=== PATIENT | male | born 1980 | race Caucasian/White ===

== ENCOUNTER → 2020-03-07 | Outpatient (CLI) | payer OTHER ==
[~2020-03-07] VITALS: Ht 198.1 cm; Wt 124.7 kg
[2020-03-07 14:22] VITALS: BP 158/99
--- NOTE | 2020-03-07 14:32 | NUR ---
Pain Clinic Assessment: 1. History of Osteoarthritis: right hip History of Rheumatoid Arthritis: Not Applicable 2. Height: 6 ft. 6 in. 198.1 cm. Weight: 275.0 lb. oz. 124.740 kg. Patient's BMI: 31.8 3. Vital Signs: BP: 158/99 Pulse: 102 Resp: 16 Temp: 02 Sat: 95 ECG Mon: 4. Pain Intensity: 8 5. Fall Risk: Dizziness: N Needs help standing or walking: N Fallen in the last 3 months: N Fall risk comments: 6. Patient on Blood Thinner: None 7. History of Hypertension: N 8. Opioid Therapy greater than 6 weeks: N Opiate Contract Signed: 9. Risk Assessment Tool Provided: low-0 10. Functional Assessment Tool: 50/70 11. Recreational Drug Use: Never Drug Type: Tobacco Use: Former Smoker Tobacco Type: Amount or Packs/day: How Many Years: Alcohol Use: Yes Frequency: Weekly Quant: 6
--- NOTE | 2020-03-13 08:12 | HPC ---
[facility] [address] [place] [address] PAIN MANAGEMENT CONSULTATION Name: FRANCA RIGGINS Room #: REG JUAN MANUEL Parsons.#: [id number] Admission: 03/07/20 Attend Phys: Taqueria Serna DO Discharge: Date of : 80 Report #: [id number] CC: Richie Mujica MD FAM physician/PCP Taqueria Serna DATE OF SERVICE: 03/07/2020 REFERRING PHYSICIAN: Richie Mujica MD with [facility]. CHIEF COMPLAINT: Low back pain, right lower extremity pain with paresthesias. HISTORY OF PRESENT ILLNESS: As you know, the patient is a very pleasant 39-year-old male who reports acute onset of low back pain, right lower extremity pain that began 10/2019. He believes he "threw his back out" at the gym. He has been trialing conservative treatment over the past 6-8 weeks. He has tried [id number] medications, rest, relaxation without improvement in symptoms. He ultimately went for lumbar MRI after discussing his case further with his primary care physician. MRI showed changes at the L4-L5 level consistent with his symptoms and he was subsequently referred to Neurosurgery to discuss treatment options. There was noted a large central right paracentral disk protrusion measuring 1.5 x 0.8 x 1.3 cm that severely narrowed the lateral recess. The patient was seen by Neurosurgery, Dr. Richie Mujica on 03/06/2020, advised to trial conservative treatment options and referred to our clinic for evaluation to discuss the possibility of undergoing lumbar epidural injection and other treatment options. The patient indicates today pain is continuous, steady throughout the day. There is periodic, intermittent and momentary exacerbations of symptoms. He states his pain is burning, shooting, cramping, aching, throbbing, sharp, numbness and tingling. He places his current pain score at 8/10, daily average at 8/10, worst pain has been is 10/10. The patient states his pain is exacerbated with standing and sitting for any length of time and improves with repositioning and lying down. He has been referred to our service to discuss treatment options for lumbar radiculopathy. PAST MEDICAL HISTORY: None. PAST SURGICAL HISTORY: Rotator cuff repair. SOCIAL HISTORY: The patient denies tobacco use. Denies IV or illicit drug use. Admits to 1 alcohol beverage per day. He is currently employed in financing. He is working, not receiving workmen's compensation nor is he trying to obtain discrete benefits. He is not in litigation in regards to pain. He is unaccompanied at today's visit. REVIEW OF SYSTEMS: Positive only for low back pain, right lower extremity pain with paresthesias. All other review of systems negative per 12-point review of systems other than those listed in history of present illness. Pain impact score 50/70, severe interference of daily activities secondary to pain. ALLERGIES: No known drug allergies. CURRENT MEDICATIONS: None. IMAGING: MRI lumbar spine obtained 02/27/2020 shows L1-L2 unremarkable, L2-L3 unremarkable, L3-L4 unremarkable, L4-L5 shows a large central right paracentral disk protrusion measuring 1.5 x 0.8 x 1.3 cm. This severely narrows the lateral recess bilaterally. The central canal is not significantly narrowed. There is no significant neural foraminal narrowing. At L5-S1, broad-based disk bulge, central canal appears normal. There is tapering of the neural foramen secondary to facet arthropathy and disk osteophyte complex, but this is minor. PHYSICAL EXAMINATION: VITAL SIGNS: Blood pressure 158/99, pulse 102, respiratory rate 16 and unlabored. The patient is 95% on room air, height 6 feet 6 inches tall, weight 275 pounds, BMI calculated 31.8. GENERAL: Well-developed, well-nourished, well-hydrated 39-year-old male appearing his stated age. He is in mild distress secondary to pain, placing current pain score 8/10. HEENT: Normocephalic, atraumatic. Pupils equal, round and reactive to light. Extraocular muscles are intact. Speech is fluent. The patient deemed an excellent historian. LUNGS: Clear. No wheeze, rhonchi, no rales. CARDIOVASCULAR: Regular. No appreciable gallop, no rub. ABDOMEN: Soft, nontender, nondistended. EXTREMITIES: Show no clubbing, no cyanosis, no edema. MUSCULOSKELETAL: Lower extremity strength equal and symmetrical 5/5, intact to light touch from L1 through S2 dermatomes. Seated straight leg raising positive on the right. Supine straight leg raising positive on the right at about 30-degree angle. Ankle clonus negative. Babinski is negative. Cross seated straight leg raising positive. ASSESSMENT: 1. Symptomatic lumbar radiculopathy. 2. Displacement of lumbar intervertebral disk with radiculopathy. 3. 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 4. Lumbar degeneration. PLAN: 1. Based on today's physical exam and history the patient has provided, the description the patient uses in regards to pain as well as location of symptoms and descriptors he uses in regards to pain, likely source of the patient's symptoms is a lumbar radiculopathy. We have taken the time to review the patient's MRI with him today in its entirety. We discussed the findings therein and correlated it directly to his current symptoms. The patient has a very good understanding of his current pathology. After that discussion, we discussed treatment options available to address the symptoms at the L4-L5 level causing right low back and right lower extremity symptoms. The following was discussed with the patient today. We discussed physical therapy, stretching exercises and core strengthening as a treatment option. We discussed medication management utilizing neuropathic pain medication such as amitriptyline, nortriptyline, Cymbalta, Lyrica, and gabapentin. We discussed epidural injections under fluoroscopic guidance for which the patient was referred to our clinic. We also discussed spinal cord stimulator therapy as a treatment option as well as traditional surgical decompression as proposed by Dr. Mujica at their appointment on 03/06/2020. After reviewing the risks and benefits of all the proposed treatment options, the patient chose to begin with a lumbar epidural injection under fluoroscopic guidance. 2. Due to third constitution party payer restrictions, authorization would have to be obtained before the patient could undergo a lumbar epidural injection. We will begin the authorization process immediately. Once we have this authorization, we will have the patient return to undergo the first in a series of epidural injections. We are hopeful we will have this authorization done quickly and will have him return as rapidly as possible to undergo the requested epidural injection. 3. We discussed at length medication management could be offered. At this time, the patient does not wish to initiate any medication management. He wishes to consider the epidural injections and possibly even a spinal cord stimulator before looking towards medication therapy. He is resistant to undergo medication management as he is concerned about the potential side effects given his job and finances. He needs to remain as cognitively aware as possible and does understand that the side effects of most of the neuropathic pain medications directly affect cognition. 4. The patient was given information about spinal cord stimulator to review on his own. We will discuss this at a followup visit. This could be an option for the patient if he wishes to avoid traditional surgery. This may be a good temporizing measure that could provide analgesic benefit for an extended period of time. He will consider this as an option. I have given the information to him today. 5. We will see the patient back in followup visit once we have achieved authorization to undergo lumbar epidural injection. We are hopeful this authorization will occur quickly and we will have him return to undergo that procedure. 6. We wish to thank Dr. Richie Mujica for the opportunity to see this patient in consultation. We will keep you apprised of his response to treatment as we address lumbar radiculopathy secondary to the findings at the L4-L5 level. Again, we wish to thank you for the opportunity to see this patient in consultation. <ELECTRONICALLY SIGNED> By: Taqueria Serna DO 03/13/20 0812 [id number] Taqueria Serna DO /nt
== END ==
LOC: PAIN 07:00
PROVIDERS: ATTEND Anesthesiology Pain Medicine
DX: M51.16 Intervertebral disc disorders with radiculopathy, lumbar region (principal); M48.061 Spinal stenosis, lumbar region without neurogenic claudication; Z68.31 Body mass index [BMI] 31.0-31.9, adult; Z98.890 Other specified postprocedural states

== ENCOUNTER → 2020-03-13 | Outpatient (CLI) | payer OTHER ==
[~2020-03-13] VITALS: Ht 198.1 cm; Wt 128.8 kg
[2020-03-13 11:05] VITALS: BP 151/97
--- NOTE | 2020-03-13 11:14 | NUR ---
Pain Clinic Assessment: 1. History of Osteoarthritis: right hip History of Rheumatoid Arthritis: Not Applicable 2. Height: 6 ft. 6 in. 198.1 cm. Weight: 284.0 lb. oz. 128.822 kg. Patient's BMI: 32.8 3. Vital Signs: BP: 151/97 Pulse: 94 Resp: 14 Temp: 02 Sat: 97 ECG Mon: 4. Pain Intensity: 7 5. Fall Risk: Dizziness: N Needs help standing or walking: N Fallen in the last 3 months: N Fall risk comments: 6. Patient on Blood Thinner: None 7. History of Hypertension: N 8. Opioid Therapy greater than 6 weeks: N Opiate Contract Signed: 9. Risk Assessment Tool Provided: low-0 10. Functional Assessment Tool: 50/70 11. Recreational Drug Use: Never Drug Type: Tobacco Use: Former Smoker Tobacco Type: Amount or Packs/day: How Many Years: Alcohol Use: Yes Frequency: Quant:
--- NOTE | 2020-03-14 12:28 | HPC ---
[facility] [place] [address] PAIN MANAGEMENT CONSULTATION Name: FRANCA RIGGINS Room #: REG JUAN MANUEL TaurusEstebanRandal#: [id number] Admission: 03/13/20 Attend Phys: Taqueria Serna DO Discharge: Date of : 80 Report #: [id number] THIS REPORT FOR: cc: FAM - No family physician/PCP FAM - No family physician/PCP Taqueria Serna DO ~ DATE OF SERVICE: 03/13/2020 REFERRING PHYSICIAN: Richie Mujica MD CHIEF COMPLAINT: Low back pain, right lower extremity pain and paresthesias. HISTORY OF PRESENT ILLNESS: As you know, the patient is a very pleasant 39-year-old male with acute onset of low back pain, right lower extremity pain that began 10/2019. He believes he "threw his back out" at the gym. He trialled conservative treatment over an 8-week period of time without much improvement. He sought evaluation through neurosurgery, who advised to trial more conservative approach initially. He was sent to our clinic to address lumbar radiculopathy secondary to the findings at the L4-L5 level. The patient was seen in consultation 03/07/2020, advised of the treatment options, he chose to undergo lumbar epidural injection under fluoroscopic guidance. Due to third republican payer restrictions, authorization had to be obtained before the patient could undergo an injection. He returns today to undergo the procedure. The patient reports today pain at a level of 7/10. He denies new injury, trauma or any changes in medical history since our last visit. ALLERGIES: No known drug allergies. CURRENT MEDICATIONS: None. SOCIAL HISTORY: The patient denies tobacco use. Denies IV or illicit drug use. Admits to approximately 1 alcohol beverage per day. He is currently employed in financing working, not receiving workmen's compensation, unaccompanied today. IMAGING: No new imaging available. PHYSICAL EXAMINATION: VITAL SIGNS: Blood pressure 151/97, pulse 94, respiratory rate 14 and unlabored. The patient is 97% on room air, height 6 feet 6 inches tall, weight 284 pounds, BMI calculated 32.8. GENERAL: Well-developed, well-nourished, well-hydrated 39-year-old male appearing stated age. Pain is rated today 7/10. HEENT: Normocephalic, atraumatic. Pupils equal, round and reactive. EXTREMITIES: Show no clubbing, no cyanosis. No appreciable edema. MUSCULOSKELETAL: Lower extremity strength equal and symmetrical 5/5, intact to [facility] [address] [place] [address] PAIN MANAGEMENT CONSULTATION Name: FRANCA RIGGINS Room #: REG [employer]#: [id number] Admission: 03/13/20 Attend Phys: Taqueria Serna DO Discharge: Date of : 80 Report #: [id number] light touch from L1 through S2 dermatomes. Seated straight leg raising positive. Supine straight leg raising positive on the right. Maryjane's test is negative. ASSESSMENT: 1. Symptomatic lumbar radiculopathy. 2. Displacement of lumbar intervertebral disk with radiculopathy. 3. Lateral recess stenosis of lumbar spine. 4. Lumbar degeneration. PLAN: 1. The patient returns today in followup visit, being achieved authorization to undergo lumbar epidural injection under fluoroscopic guidance. The patient has been advised of the risks and the benefits of a lumbar epidural injection. These risks include but are not necessarily limited to bleeding, bruising, infection, worsening pain, no relief of pain, also risk of temporary or permanent muscle weakness, temporary or permanent nerve damage, possible paralysis and . The patient states understood and wished to proceed. 2. No medication changes made at today's visit. The patient will continue current medical therapy as prior prescribed. 3. We plan to see the patient back in followup visit in 30 days. At that time, review the efficacy of today's epidural injection and determine if next in the series of epidural injections would be recommended. PROCEDURE NOTE DESCRIPTION OF PROCEDURE: L5-S1 right paramedian epidural steroid injection under fluoroscopic guidance. This is the first procedure of the first series that the patient is undergoing. After obtaining written consent, the patient was taken back to the fluoroscopy suite, placed in a prone position with pillow under the abdomen to decrease lumbar lordosis. The skin overlying the lumbosacral area was then prepped and draped in aseptic fashion. The L5-S1 vertebral interspace was then identified by AP fluoroscopy. The skin and subcutaneous tissue overlying the target site of injection was anesthetized with 3 mL 1% lidocaine. A 20-gauge 3-1/2 inch Tuohy needle was then advanced under fluoroscopic guidance towards the epidural space using a right paramedian approach. The epidural space was identified using loss of resistance to air technique. After negative aspiration for heme or cerebrospinal fluid, a total of 1 mL of Omnipaque was injected. A lumbar epidurogram was confirmed using both AP and lateral fluoroscopy. After negative aspiration for heme or cerebrospinal fluid, 5 mL of a solution containing 2 mL 40 mg per mL, 80 mg total triamcinolone along with 3 mL of lidocaine 1% was injected in increments. Contrast spread was noted [address] [address] PAIN MANAGEMENT CONSULTATION Name: FRANCA RIGGINS Room #: REG JUANM ANUEL Clay#: [id number] Admission: 03/13/20 Attend Phys: Taqueria Serna DO Discharge: Date of : 80 Report #: [id number] posterior epidural space. The needle was then retracted approximately half way and needle tract flushed with 1 mL of 1% lidocaine. Needle was then removed. There were no apparent sensory or motor deficits in the lower extremity following the procedure. A sterile bandage was placed over the injection site. The heart rate, pulse, oximetry and blood pressure were continuously monitored after the procedure. There were no apparent complications. The patient tolerated the procedure well and was carefully escorted to the recovery room in stable condition. There were no apparent complications. After meeting discharge criteria, the patient was then discharged home. <ELECTRONICALLY SIGNED> By: Taqueria Serna DO 03/14/20 1228 1237 [id number] Taqueria Serna DO /nt
== END | disposition home or self-care (01) ==
LOC: PAIN 06:57
PROVIDERS: ATTEND Anesthesiology Pain Medicine
DX: M54.16 Radiculopathy, lumbar region (principal); G89.29 Other chronic pain

== ENCOUNTER → 2020-04-10 | Outpatient (CLI) | payer OTHER ==
[~2020-04-10] VITALS: Ht 198.1 cm; Wt 130.2 kg
[2020-04-10 10:21] VITALS: BP 143/96
--- NOTE | 2020-04-11 12:34 | HPC ---
[facility] [address] [place] [address] PAIN MANAGEMENT CONSULTATION Name: FRANCA RIGGINS Room #: REG JUAN MANUEL Obed#: [id number] Admission: 04/10/20 Attend Phys: Taqueria Serna DO Discharge: Date of : 80 Report #: [id number] THIS REPORT FOR: cc: FAM - No family physician/PCP FAM - No family physician/PCP Taqueria Serna DO ~ DATE OF SERVICE: 04/10/2020 REFERRING PHYSICIAN: Dr. Richie Mujica with Neurosurgery at [facility]. CHIEF COMPLAINT: Low back pain, right lower extremity pain with paresthesias. HISTORY OF PRESENT ILLNESS: As you know, the patient is a very pleasant 39-year-old male with acute onset of low back pain, right lower extremity pain with paresthesias that began 10/2019. He thinks he threw his back out at the gym. He trialled conservative treatment over an 8-week period without much improvement. He sought evaluation through neurosurgery, who advised a surgical option may be necessary, but to trial more conservative treatment with a lumbar epidural injection. We saw the patient in consultation per the request of Dr. Mujica on 03/07/2020 and established today's appointment for 03/13/2020 to undergo lumbar epidural injection as third libertarian payer restrictions required authorization. He has completed the epidural injection with near 100% improvement in overall pain. He is now indicating intermittent numbness on the right side, which is completely tolerable. He returns today in followup visit, advising us of the efficacy of the first epidural injection and his near complete return to daily activities. He is very pleased with response to the first injection, returning today in followup visit to discuss potential treatment options if his symptoms do return and to also discuss neuropathic medications as a possible treatment option for his intermittent numbness and tingling radiating down the right leg. ALLERGIES: No known drug allergies. CURRENT MEDICATIONS: None. SOCIAL HISTORY: The patient denies tobacco use. Denies IV or illicit drug use. Admits to approximately 1 alcohol beverage per day. He is currently employed, working, not receiving workmen's compensation, unaccompanied today. IMAGING: No new imaging available. PHYSICAL EXAMINATION: VITAL SIGNS: Blood pressure 143/96, pulse 98, respiratory rate 16 and unlabored. The patient is 97% on room air, height 6 feet 6 inches tall, weight 287 pounds, BMI calculated 33.2. [place] [address] PAIN MANAGEMENT CONSULTATION Name: FRANCA RIGGINS Room #: REG CL Obed#: [id number] Admission: 04/10/20 Attend Phys: Taqueria Serna DO Discharge: Date of : 80 Report #: [id number] GENERAL: Well-developed, well-nourished, well-hydrated 39-year-old male appearing stated age. He is in no acute distress, awake, alert and oriented x 3. Current pain score is rated today at no greater than 4/10. HEENT: Normocephalic, atraumatic. Pupils equal, round and reactive. NEUROLOGIC: Speech is fluent. The patient deemed an excellent historian. EXTREMITIES: Show no clubbing, no cyanosis, no edema. MUSCULOSKELETAL: Seated straight leg raising is negative. Supine straight leg raising is positive on the right. Maryjane's test is negative. Modified Gaenslen's positive for some axial low back pain, but this is minor in nature and located bilaterally. Lower extremity strength remains symmetrical 5/5 as does the muscle bulk and tone equal and symmetrical. ASSESSMENT: 1. Symptomatic lumbar radiculopathy. 2. Displacement of a lumbar intervertebral disk with radiculopathy. 3. Lateral recess stenosis of lumbar spine. 4. Lumbar degeneration. PLAN: 1. The patient returns today in followup visit with excellent benefit undergoing an epidural injection in March. He has had almost complete resolution of his pain. He continues to experience intermittent numbness and tingling, but states this is of no concern. He states the numbness and tingling will be present and then be gone for a day or even a greater and may return with activities, but no specific activities that he is aware of. He has returned to the gym and is doing his typical workout routine. He is continuing to work and participate in daily activities. He is very pleased with response to the injection. He returns to discuss treatment options if symptoms do become more problematic. 2. We would recommend given the efficacy of the first epidural injection if his symptoms do return to that he undergo next in the series of lumbar epidural injections. This would improve his overall pain and may begin to improve some of his paresthesias. The patient is agreeable with the plan and will make an appointment with our clinic as needed for the next in the series of lumbar epidural injections. 3. We did discuss with the patient the opportunity to start neuropathic pain medications to assist in addressing some of his right lower extremity neuropathy. The patient and I did discuss the medications available including amitriptyline, nortriptyline, Cymbalta, Lyrica, gabapentin. 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 He will consider the option, but at this point does not wish to initiate any therapy as the numbness and tingling is an annoyance, but is not halting any of his daily activities. We can certainly initiate these medications at any time if the patient wishes to do [facility] [address] [place] [address] PAIN MANAGEMENT CONSULTATION Name: FRANCA RIGGINS Room #: REG JUAN MANUEL Clay#: [id number] Admission: 04/10/20 Attend Phys: Taqueria Serna DO Discharge: Date of : 80 Report #: [id number] so. We will be available to discuss this again at followup visit. 4. We are pleased to see the patient is doing well with the initial epidural injection. We will make ourselves available if he needs to address recurrence of pain with the next in the series of epidural injections. We plan to see him back on an as needed basis. <ELECTRONICALLY SIGNED> By: Taqueria Serna DO 04/11/20 1234 1200 [id number] Taqueria Serna DO /nt
== END ==
LOC: PAIN 06:48
PROVIDERS: ATTEND Anesthesiology Pain Medicine
DX: M51.16 Intervertebral disc disorders with radiculopathy, lumbar region (principal); M48.061 Spinal stenosis, lumbar region without neurogenic claudication; Z79.891 Long term (current) use of opiate analgesic; Z79.899 Other long term (current) drug therapy

== ENCOUNTER → 2021-01-16 | Outpatient (CLI) | payer OTHER ==
[~2021-01-16] VITALS: Ht 198.1 cm; Wt 129.1 kg
[~2021-01-16] MED LIST: PROPECIA1 MG PO
--- NOTE | ~2021-01-16 | HPC ---
[facility] [place] [address] PAIN MANAGEMENT CONSULTATION Name: FRANCA RIGGINS Room #: REG JUAN MANUEL Obed#: [id number] Admission: 01/16/21 Attend Phys: Taqueria Serna DO Discharge: Date of : 80 Report #: [id number] THIS REPORT FOR: cc: FAM - No family physician/PCP FAM - No family physician/PCP Taqueria Serna DO ~ cc: Richie Mujica DATE OF SERVICE: 01/16/2021 CHIEF COMPLAINT: Low back pain, right lower extremity pain with paresthesias. HISTORY OF PRESENT ILLNESS: As you know, the patient is a very pleasant 40-year-old male, reporting acute onset of low back pain, right lower extremity pain that began on 10/22/2019. He thinks he threw his back out while at the gym. Trial of conservative treatment did not provide much in the way of improvement. He sought evaluation through Neurosurgery who advised the patient trial conservative treatment and was referred to our clinic by Dr. Mujica, his neurosurgeon to undergo a lumbar epidural injection under fluoroscopic guidance. The lumbar epidural injection provided excellent benefit in overall pain. He reports 85% improvement lasting for nearly 9 months. He returns today in followup visit without injury or trauma requesting to undergo next in the series of epidural injections as he has begun to experience increasing low back pain, right lower extremity pain, which restarted after some golfing games. He states the pain is aching, numbness and tingling, radiating down the right leg. He describes pain exacerbated with standing, driving and working out, improves with rest and relaxation, previous epidural injection. He returns today in followup visit to undergo next in the series of epidural injections. ALLERGIES: No known drug allergies. CURRENT MEDICATIONS: None. SOCIAL HISTORY: The patient denies tobacco use. Denies IV or illicit drug use. Admits to 1 alcohol beverage per day. He is employed, working, not receiving workmen's compensation, unaccompanied today. IMAGING: No new imaging available. PHYSICAL EXAMINATION: VITAL SIGNS: Blood pressure 123/84, pulse is 82, respiratory rate 14 and unlabored. The patient 98% on room air, height 6 feet 6 inches tall, weight 284.6 pounds, BMI calculated 32.9. GENERAL: Well-developed, well-nourished, well-hydrated 40-year-old male, placing current pain score 5/10. HEENT: Normocephalic, atraumatic. Pupils are round and responsive. He is wearing a mask in compliance with COVID-[address] [address] PAIN MANAGEMENT CONSULTATION Name: FRANCA RIGGINS Room #: REG Raiza Clay#: [id number] Admission: 01/16/21 Attend Phys: Taqueria Serna DO Discharge: Date of : 80 Report #: [id number] EXTREMITIES: Show no clubbing, no cyanosis. No appreciable edema. MUSCULOSKELETAL: Lower extremity strength appears symmetrical 5/5. Muscle bulk and tone is symmetrical in comparing lower extremities. Seated straight leg raising negative. Supine straight leg raising positive on the right at about 65-70 degree angle. Ankle clonus negative. Babinski is negative. Gait appears normal. ASSESSMENT: 1. Symptomatic lumbar radiculopathy. 2. Displacement of lumbar intervertebral disk with radiculopathy. 3. 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 4. Lumbar degeneration. PLAN: 1. The patient returns today in followup visit requesting to undergo lumbar epidural injection under fluoroscopic guidance. He notes with the previous epidural injection 85% improvement in overall pain lasting for nearly 9 months. Unfortunately, his symptoms have reoccurred. No specific injury or trauma. He returns to undergo the next in the series of epidural injections in hopes of improving pain. He has been advised risks and benefits of the procedure, states understood and wished to proceed. 2. No medication changes made at today's visit. The patient will continue current medical therapy as prior prescribed. 3. We plan to see the patient back in followup visit on an as needed basis. We are hopeful the patient will once again see good and prolonged benefit with the epidural injection provided today. DESCRIPTION OF PROCEDURE: L5-S1 right paramedian epidural steroid injection under fluoroscopic guidance. This is the second procedure of the first series that the patient is undergoing. After obtaining written consent, the patient was taken back to the fluoroscopy suite, placed in a prone position with pillow under the abdomen to decrease lumbar lordosis. The skin overlying the lumbosacral area was then prepped and draped in aseptic fashion. The L5-S1 vertebral interspace was then identified by AP fluoroscopy. The skin and subcutaneous tissue overlying the target site of injection was anesthetized with 3 mL 1% lidocaine. A 20-gauge, 3-1/2-inch Tuohy needle was then advanced under fluoroscopic guidance towards the epidural space using a right paramedian approach. The epidural space was identified using loss of resistance to air technique. After negative aspiration for heme or cerebrospinal fluid, a total of 1 mL of Omnipaque was injected. A lumbar epidurogram was confirmed using both AP and lateral fluoroscopy. After negative aspiration for heme or cerebrospinal fluid, 5 mL of a solution containing 2 mL 40 mg per mL 80 mg total of [address] [address] PAIN MANAGEMENT CONSULTATION Name: FRANCA RIGGINS Room #: REG Raiza Obed#: [id number] Admission: 01/16/21 Attend Phys: Taqueria Serna DO Discharge: Date of : 80 Report #: [id number] triamcinolone along with 3 mL of lidocaine 1% was injected in increments. Contrast spread was noted in the posterior epidural space. The needle was then retracted approximately half way and needle tract flushed with 1 mL of 1% lidocaine. Needle was then removed. There were no apparent sensory or motor deficits in the lower extremity following the procedure. A sterile bandage was placed over the injection site. The heart rate, pulse, oximetry and blood pressure were continuously monitored after the procedure. There were no apparent complications. The patient tolerated the procedure well and was carefully escorted to the recovery room in stable condition. There were no apparent complications. After meeting discharge criteria, the patient was then discharged home. By: 0741 Taqueria Serna DO /nt
[2021-01-16 09:45] VITALS: BP 123/84
--- NOTE | 2021-01-16 09:51 | NUR ---
Pain Clinic Assessment: 1. History of Osteoarthritis: right hip History of Rheumatoid Arthritis: Not Applicable 2. Height: 6 ft. 6 in. 198.1 cm. Weight: 284.6 lb. oz. 129.094 kg. Patient's BMI: 32.9 3. Vital Signs: BP: 123/84 Pulse: 82 Resp: 14 Temp: 02 Sat: 98 ECG Mon: 4. Pain Intensity: 5 5. Fall Risk: Dizziness: N Needs help standing or walking: N Fallen in the last 3 months: N Fall risk comments: 6. Patient on Blood Thinner: None 7. History of Hypertension: N 8. Opioid Therapy greater than 6 weeks: N Opiate Contract Signed: 9. Risk Assessment Tool Provided: low-0 10. Functional Assessment Tool: 50/70 11. Recreational Drug Use: Never Drug Type: Tobacco Use: Former Smoker Tobacco Type: Amount or Packs/day: How Many Years: Alcohol Use: Yes Frequency: Weekly Quant: 6
== END | disposition home or self-care (01) ==
LOC: PAIN 06:48
PROVIDERS: ATTEND Anesthesiology Pain Medicine
DX: M51.16 Intervertebral disc disorders with radiculopathy, lumbar region (principal); M48.061 Spinal stenosis, lumbar region without neurogenic claudication; Z98.890 Other specified postprocedural states; Z79.899 Other long term (current) drug therapy; Z87.891 Personal history of nicotine dependence